=== PATIENT | female | born 1960 | race Caucasian/White ===

== ENCOUNTER 2017-05-17 07:06 | Emergency (ER) | payer OTHER ==
[2017-05-17 07:12] VITALS: RESP 18; TEMP 98.4
[2017-05-17] MEDS ORDERED: NS 1,000 ML IV ONE (07:26)
--- NOTE | 2017-05-17 07:28 | EDPHY ---
H & P Stated Complaint: LLQ pain x 5 days; hx diverticulitis;also states urine is dark Time Seen by Provider: 05/17/17 07:16 HPI/ROS: CHIEF COMPLAINT: Left lower quadrant pain HISTORY OF PRESENT ILLNESS: Patient is a 56-year-old female with history of appendectomy and recurrent diverticulitis. She began experiencing left lower quadrant pain on 4 days ago. She began taking left over Flagyl. Her symptoms have not improved. She has not had a fever. No vomiting. No diarrhea. She has had dark colored urine. No flank pain. She works for urologist. REVIEW OF SYSTEMS: Constitutional: denies: chills, fever, recent illness, recent injury EENTM: denies: blurred vision, double vision, nose congestion Respiratory: denies: cough, shortness of breath Cardiac: denies: chest pain, irregular heart rate, lightheadedness, palpitations Gastrointestinal/Abdominal: See HPI Genitourinary: denies: dysuria, frequency, hematuria, pain Musculoskeletal: denies: joint pain, muscle pain Skin: denies: lesions, rash, jaundice, bruising Neurological: denies: headache, numbness, paresthesia, tingling, dizziness, weakness Hematologic/Lymphatic: denies: blood clots, easy bleeding, easy bruising Immunologic/allergic: denies: HIV/AIDS, transplant EXAM: GENERAL: Well-appearing, well-nourished and in no acute distress. HEAD: Atraumatic, normocephalic. EYES: Pupils equal round and reactive to light, extraocular movements intact, sclera anicteric, conjunctiva are normal. ENT: TMs normal, nares patent, oropharynx clear without exudates. Moist mucous membranes. NECK: Normal range of motion, supple without lymphadenopathy or JVD. LUNGS: Breath sounds clear to auscultation bilaterally and equal. No wheezes rales or rhonchi. HEART: Regular rate and rhythm without murmurs, rubs or gallops. ABDOMEN: Left lower quadrant tenderness, no guarding or rebound, no masses BACK: No CVA tenderness, no spinal tenderness, step-offs or deformities EXTREMITIES: Normal range of motion, no pitting or edema. No clubbing or cyanosis. NEUROLOGICAL: Cranial nerves II through XII grossly intact. Normal speech, normal gait. 5/5 strength, normal movement in all extremities, normal sensation PSYCH: Normal mood, normal affect. SKIN: Warm, dry, normal turgor, no visible rashes or lesions. Source: Patient Exam Limitations: No limitations - Personal History Current Tetanus Diphtheria and Acellular Pertussis (TDAP): Yes - Medical/Surgical History Hx Asthma: No Hx Chronic Respiratory Disease: No Hx Diabetes: No Hx Cardiac Disease: No Hx Renal Disease: No Hx Cirrhosis: No Hx Alcoholism: No Hx HIV/AIDS: No Hx Splenectomy or Spleen Trauma: No Other PMH: diverticulitis. glaucoma. thyroid. Appendectomy - Family History Significant Family History: No pertinent family hx - Social History Smoking Status: Never smoked Alcohol Use: Sober Drug Use: None Constitutional: Initial Vital Signs Temperature (C) 36.9 C 05/17/17 07:08 Heart Rate 82 05/17/17 07:08 Respiratory Rate 18 05/17/17 07:08 Blood Pressure 150/83 H 05/17/17 07:08 O2 Sat (%) 97 05/17/17 07:08 O2 Delivery Mode Room Air Allergies/Adverse Reactions: codeine Allergy (Mild, Verified 05/17/17 07:08) Other-Enter Comments Home Medications: Medication Instructions Recorded Atorvastatin Calcium [Lipitor 20 20 mg PO DAILY 05/21/16 mg (*)] Hydrochlorothiazide [HCTZ (*)] 25 mg PO DAILY 05/21/16 Levothyroxine [Synthroid 75 mcg 75 mcg PO DAILY06 05/21/16 (*)] Losartan Potassium [Cozaar 50 mg 50 mg PO DAILY 05/21/16 (*)] Omeprazole 20 mg PO BID 05/21/16 Ciprofloxacin [Cipro] 500 mg PO BID #14 tab 05/17/17 metroNIDAZOLE [Flagyl] 500 mg PO BID #20 tab 05/17/17 Medical Decision Making - Diagnostics Imaging Results: Imaging Impressions Abdomen CT 05/17/17 07:26 Impression: Diverticulitis of sigmoid colon. I telephoned results to Dr. Taj Wynn at 0854 hours. ED Course/Re-evaluation: 9:00 a.m. we discussed the CT results. The patient is well appearing. We discussed disposition and she would prefer to stay at home. We did discuss indications for returning to the emergency department. I will add ciprofloxacin to her Flagyl that she has been taking. She declines pain medication prescription and states that she will continue taking cannabis jellies. She will follow up with her surgeon Dr. Langley in the next few days. Differential Diagnosis: Partial list of the Differential diagnosis considered include but were not limited to; diverticulitis, kidney stone, urinary tract infection and although unlikely based on the history and physical exam, I also considered ovarian cyst , obstruction, volvulus. I discussed these differential diagnoses and the plan with the patient as well as the usual and expected course. The patient understands that the diagnosis is provisional and that in medicine we are not always correct and that further workup is often warranted. Usual and customary warnings were given. All of the patient's questions were answered. The patient was instructed to return to the emergency department should the symptoms at all worsen or return, otherwise to followup with the physician as we discussed. - Data Points Laboratory Results: Laboratory Results 05/17/17 07:28 05/17/17 07:28 05/17/17 05/17/17 05/17/17 08:50 07:28 07:28 WBC RBC Hgb Hct MCV MCH MCHC RDW Plt Count MPV Neut % (Auto) Lymph % (Auto) Starke % (Auto) Eos % (Auto) Baso % (Auto) Nucleat RBC Rel Count Absolute Neuts (auto) Absolute Lymphs (auto) Absolute Monos (auto) Absolute Eos (auto) Absolute Basos (auto) Absolute Nucleated RBC Immature Gran % Immature Gran # Sodium 141 mEq/L mEq/L (134-144) Potassium 3.5 mEq/L mEq/L (3.5-5.2) Chloride 105 mEq/L mEq/L (97-110) Carbon Dioxide 19 mEq/l L mEq/l (22-31) Anion Gap 17 mEq/L H mEq/L (8-16) BUN 14 mg/dL mg/dL (7-23) Creatinine 0.7 mg/dL mg/dL (0.6-1.0) Estimated GFR > 60 Glucose 126 mg/dL H mg/dL (70-100) Calcium 9.6 mg/dL mg/dL (8.5-10.4) Total Bilirubin 1.1 mg/dL mg/dL (0.1-1.4) Conjugated Bilirubin 0.4 mg/dL mg/dL (0.0-0.5) Unconjugated Bilirubin 0.7 mg/dL mg/dL (0.0-1.1) AST 37 IU/L IU/L (14-46) ALT 78 IU/L H IU/L (9-52) Alkaline Phosphatase 137 IU/L H IU/L (38-126) Total Protein 6.9 g/dL g/dL (6.3-8.2) Albumin 3.9 g/dL g/dL (3.5-5.0) Lipase 183 IU/L IU/L (23-300) Beta HCG, Qual NEGATIVE Urine Color YELLOW Urine Appearance CLEAR Urine pH 7.0 (5.0-7.5) Ur Specific [place] 1.017 (1.002-1.030) Urine Protein NEGATIVE (NEGATIVE) Urine Ketones NEGATIVE (NEGATIVE) Urine Blood NEGATIVE (NEGATIVE) Urine Nitrate NEGATIVE (NEGATIVE) Urine Bilirubin NEGATIVE (NEGATIVE) Urine Urobilinogen NEGATIVE EU EU (0.2-1.0) Ur Leukocyte Esterase TRACE H (NEGATIVE) Urine RBC 1-3 /hpf /hpf (0-3) Urine WBC 0-1 /hpf /hpf (0-3) Ur Epithelial Cells TRACE /lpf /lpf (NONE-1+) Urine Mucus TRACE /lpf /lpf (NONE-1+) Urine Glucose NEGATIVE (NEGATIVE) 05/17/17 07:28 WBC 11.26 10^3/uL H 10^3/uL (3.80-9.50) RBC 3.39 10^6/uL L 10^6/uL (4.18-5.33) Hgb 11.6 g/dL L g/dL (12.6-16.3) Hct 33.7 % L % (38.0-47.0) MCV 99.4 fL fL (81.5-99.8) MCH 34.2 pg H pg (27.9-34.1) MCHC 34.4 g/dL g/dL (32.4-36.7) RDW 13.2 % % (11.5-15.2) Plt Count 264 10^3/uL 10^3/uL (150-400) MPV 10.4 fL fL (8.7-11.7) Neut % (Auto) 80.0 % H % (39.3-74.2) Lymph % (Auto) 11.1 % L % (15.0-45.0) Starke % (Auto) 6.6 % % (4.5-13.0) Eos % (Auto) 1.2 % % (0.6-7.6) Baso % (Auto) 0.6 % % (0.3-1.7) Nucleat RBC Rel Count 0.0 % % (0.0-0.2) Absolute Neuts (auto) 9.00 10^3/uL H 10^3/uL (1.70-6.50) Absolute Lymphs (auto) 1.25 10^3/uL 10^3/uL (1.00-3.00) Absolute Monos (auto) 0.74 10^3/uL 10^3/uL (0.30-0.80) Absolute Eos (auto) 0.14 10^3/uL 10^3/uL (0.03-0.40) Absolute Basos (auto) 0.07 10^3/uL 10^3/uL (0.02-0.10) Absolute Nucleated RBC 0.00 10^3/uL 10^3/uL (0-0.01) Immature Gran % 0.5 % % (0.0-1.1) Immature Gran # 0.06 10^3/uL 10^3/uL (0.00-0.10) Sodium Potassium Chloride Carbon Dioxide Anion Gap BUN Creatinine Estimated GFR Glucose Calcium Total Bilirubin Conjugated Bilirubin Unconjugated Bilirubin AST ALT Alkaline Phosphatase Total Protein Albumin Lipase Beta HCG, Qual Urine Color Urine Appearance Urine pH Ur Specific [place] Urine Protein Urine Ketones Urine Blood Urine Nitrate Urine Bilirubin Urine Urobilinogen Ur Leukocyte Esterase Urine RBC Urine WBC Ur Epithelial Cells Urine Mucus Urine Glucose Medications Given: Discontinued Medications Ciprofloxacin (Cipro) 500 mg PO EDNOW ONE PRN Reason: Protocol Stop: 05/17/17 09:01 Last Admin: 05/17/17 09:06 Dose: 500 mg Sodium Chloride (Ns) 1,000 mls @ 0 mls/hr IV EDNOW ONE; Wide Open PRN Reason: Protocol Stop: 05/17/17 07:27 Last Admin: 05/17/17 07:30 Dose: 1,000 mls Metronidazole (Flagyl) 500 mg PO EDNOW ONE PRN Reason: Protocol Stop: 05/17/17 09:01 Last Admin: 05/17/17 09:07 Dose: Not Given Departure - Departure Disposition: Home, Routine, Self-Care Clinical Impression: Diverticulitis Condition: Fair Instructions: Diverticulitis (ED) Referrals: Coleen Goldman PA [Primary Care Provider] - As per Instructions Brice Langley MD [Medical Doctor] - As per Instructions Prescriptions: Ciprofloxacin [Cipro] 500 mg PO BID #14 tab metroNIDAZOLE [Flagyl] 500 mg PO BID #20 tab
[2017-05-17 07:34] LABS: % IMMATURE GRANULYOCYTES 0.5 % (0.0-1.1); ABSOLUTE IMMATURE GRANULOCYTES 0.06 10^3/uL (0.00-0.10); ADD DIFF? NO; ADD MORPH? NO; ADD SCAN? NO; ATYPICAL LYMPHOCYTE FLAG 0 (0-99); FRAGMENT RBC FLAG 0 (0-99); HEMATOCRIT 33.7 % (38.0-47.0); HEMOGLOBIN 11.6 g/dL (12.6-16.3); LEFT SHIFT FLG 0 (0-99); LIPEMIA HEMOLYSIS FLAG 90 (0-99); MEAN CELL HEMOGLOBIN 34.2 pg (27.9-34.1); MEAN CELL HEMOGLOBIN CONCENTR. 34.4 g/dL (32.4-36.7); MEAN CELL VOLUME 99.4 fL (81.5-99.8); MEAN PLATELET VOLUME 10.4 fL (8.7-11.7); PLATELET CLUMPS FLAG 20 (0-99); PLATELET COUNT 264 10^3/uL (150-400); RED BLOOD CELL COUNT 3.39 10^6/uL (4.18-5.33); RED CELL DISTRIBUTION WIDTH 13.2 % (11.5-15.2)
[2017-05-17 07:51] LABS: ALANINE AMINOTRANSFERASE 78 IU/L (9-52); ALBUMIN 3.9 g/dL (3.5-5.0); ALKALINE PHOSPHATASE 137 IU/L (38-126); ANION GAP 17 mEq/L (8-16); ASPARTATE AMINOTRANSFERASE 37 IU/L (14-46); BILIRUBIN,TOTAL 1.1 mg/dL (0.1-1.4); BILIRUBIN-CONJUGATED 0.4 mg/dL (0.0-0.5); BILIRUBIN-UNCONJUGATED 0.7 mg/dL (0.0-1.1); CALCIUM 9.6 mg/dL (8.5-10.4); CARBON DIOXIDE 19 mEq/l (22-31); CHLORIDE 105 mEq/L (97-110); CREATININE 0.7 mg/dL (0.6-1.0); GLOMERULAR FILTRATION RATE > 60; GLUCOSE 126 mg/dL (70-100); POTASSIUM 3.5 mEq/L (3.5-5.2); SODIUM 141 mEq/L (134-144); TOTAL PROTEIN 6.9 g/dL (6.3-8.2)
[2017-05-17] MEDS ORDERED: IOPAMIDOL (ISOVUE-300) 100 ML BTL ONE (08:16)
[2017-05-17 08:51] VITALS: BP 141/89; PULSE 74; O2SAT 96
[2017-05-17 08:57] LABS: COLOR YELLOW; LEUKOCYTE ESTERASE,URINE TRACE (NEGATIVE); NITRITE,URINE NEGATIVE (NEGATIVE)
[2017-05-17 09:00] LABS: MUCUS TRACE /lpf (NONE-1+); WBC,URINE 0-1 /hpf (0-3)
[2017-05-17] MEDS ORDERED: metroNIDAZOLE 500 MG TAB PO ONE (09:00)
[2017-05-17] MEDS ORDERED: CIPROFLOXACIN 500 MG TAB PO ONE (09:00)
== END 2017-05-17 09:20 | disposition home or self-care (01) ==
DX: K57.32 Diverticulitis of large intestine without perforation or abscess without bleeding (principal); E86.9 Volume depletion, unspecified; Z90.49 Acquired absence of other specified parts of digestive tract
CPT/HCPCS: Q9967

== ENCOUNTER 2017-07-16 07:29 | Inpatient (IN) | payer OTHER ==
[2017-07-16] MEDS ORDERED: DEXAMETHASONE 4 MG/ML VIAL IVP ONE (07:48)
[2017-07-16] MEDS ORDERED: LR 1,000 ML IV SCH (07:48)
[2017-07-16] MEDS ORDERED: cefOXitin SODIUM 2 GM in STERILE WATER INJ 21 ML IV ONE (07:48)
[2017-07-16] MEDS ORDERED: LR 1,000 ML IV ONE (08:16)
[2017-07-16] MEDS ORDERED: LIDOCAINE 1% 2 ML INJ ID PRN (08:16)
[2017-07-16] MEDS ORDERED: LIDOCAINE 1% 2 ML INJ ONE (08:20)
[2017-07-16] MEDS ORDERED: MIDAZOLAM 2 MG/2 ML VIAL IVP ONE (09:27)
--- NOTE | 2017-07-16 09:27 | PDANEPAE ---
ANE History of Present Illness diverticulitis here for colon resection ANE Past Medical History - Cardiovascular History Hx Hypertension: Yes Hx Arrhythmias: No Hx Chest Pain: No Hx Coronary Artery / Peripheral Vascular Disease: No Hx CHF / Valvular Disease: No Hx Palpitations: No - Pulmonary History Hx COPD: No Hx Asthma/Reactive Airway Disease: No Hx Recent Upper Respiratory Infection: No Hx Oxygen in Use at Home: No Hx Sleep Apnea: No Sleep Apnea Screening Result - Last Documented: Negative - Neurologic History Hx Cerebrovascular Accident: No Hx Seizures: No Hx Dementia: No - Endocrine History Hx Diabetes: No Endocrine History Comment: HYPOTHYROID - Renal History Hx Renal Disorders: No - Liver History Hx Hepatic Disorders: No - Neurological & Psychiatric Hx Hx Neurological and Psychiatric Disorders: No - Cancer History Hx Cancer: No - Congenital Disorder History Hx Congenital Disorders: No - GI History Hx Gastrointestinal Disorders: Yes Gastrointestinal History Comment: GERD. GI BLEED DIVERTICULOSIS AND DIVERTICULITIS. LIQUID STOOLS. FATTY LIVER - Other Health History Other Health History: IRON DEFICIENCY ANEMIA BLOOD TRANSFUSION 2015 - Chronic Pain History Chronic Pain: Yes (LT LOWER QUADRANT) - Surgical History Prior Surgeries: PEGGY GLAUCOMA. EGD/COLONOSCOPY 05/22. BREAST BX X4. APPENDECTOMY 2001. RT THUMB REMVL CA DEPOSITS. CHIN RECONSTRUCTION POST DOG BITE ANE Review of Systems Review of Systems: - Exercise capacity METS (RN): 4 METS ANE Patient History - Allergies Allergies/Adverse Reactions: codeine Allergy (Mild, Verified 05/17/17 07:08) Other-Enter Comments - Home Medications Home Medications: Atorvastatin Calcium [Lipitor 20 mg (*)] 20 mg PO DAILY 05/21/16 [Last Taken ] Hydrochlorothiazide [HCTZ (*)] 25 mg PO DAILY 05/21/16 [Last Taken 05/20/16] Levothyroxine [Synthroid 75 mcg (*)] 75 mcg PO DAILY06 05/21/16 [Last Taken ] Losartan Potassium [Cozaar 50 mg (*)] 50 mg PO DAILY 05/21/16 [Last Taken ] Omeprazole 20 mg PO DAILY 05/21/16 [Last Taken 05/20/16] Ascorbic Acid [Vitamin C 500 mg (*)] 1,000 mg PO DAILY 06/30/17 [Last Taken Unknown] Calcium Carb W/Vit D [Calcium Carb W/Vit D 500/200 (*)] 1,200 mg PO DAILY [Last Taken Unknown] Capsaicin [Capsicum Hot Patch] 1 each TP DAILY PRN 06/30/17 [Last Taken Unknown] Cyanocobalamin [Vitamin B12 (*)] 2,500 mcg PO DAILY 06/30/17 [Last Taken Unknown ] Ferrous Sulfate [Ferrous Sulf 325 MG (*)] 325 mg PO DAILY 06/30/17 [Last Taken Unknown] Folic Acid [Folic Acid 1 MG (*)] 800 mcg PO DAILY 06/30/17 [Last Taken Unknown] Herbals/Supplements -Info Only 1 ea PO DAILY 06/30/17 [Last Taken Unknown] Multivitamins [Multivitamin (*)] 1 tab PO DAILY 06/30/17 [Last Taken Unknown] - NPO status NPO Status: no food or drink >8 hours NPO Since - Liquids (Date): 07/15/17 NPO Since - Liquids (Time): 19:30 NPO Since - Solids (Date): 07/14/17 NPO Since - Solids (Time): 19:00 - Anes Hx Anes Hx: no prior problems - Smoking Hx Smoking Status: Never smoked - Alcohol Use Alcohol Use: Occasionally - Family Anes Hx Family Anes Hx: none ANE Labs/Vital Signs - Vital Signs Blood Pressure: 150/94 Heart Rate: 76 Respiratory Rate: 16 O2 Sat (%): 94 Height: 156.21 cm Weight: 67.585 kg ANE Physical Exam - Airway Neck exam: FROM Mallampati Score: Class 2 Mouth exam: normal dental/mouth exam - Pulmonary Pulmonary: no respiratory distress, clear to auscultation - Cardiovascular Cardiovascular: regular rate and rhythym, no murmur, rub, or gallop - ASA Status ASA Status: II ANE Anesthesia Plan Anesthesia Plan: general endotracheal anesthesia
--- NOTE | 2017-07-16 09:28 | PDHPUP ---
History & Physical Update H&P update statement: This history and physical update is based on an assessment of the patient which was completed after admission or registration (within 24 hours), but prior to the surgery/procedure. H&P update: H&P reviewed & patient examined, no change in patient's condition since H&P completed
[2017-07-16] MEDS ORDERED: fentaNYL 100 MCG/2 ML INJ ONE ×3 (09:35→13:52)
[2017-07-16] MEDS ORDERED: PROPOFOL 200 MG/20 ML VIAL ONE (09:35)
[2017-07-16] MEDS ORDERED: POLYMYXIN B SULFATE 500,000 UNIT/10 ML SYR IRR ONE (09:38)
[2017-07-16] MEDS ORDERED: BUPIVACAINE 0.5% 30 ML SDV ONE ×2 (09:38→12:24)
[2017-07-16] MEDS ORDERED: BACITRACIN 50,000 UNITS/10 ML SYR IRR ONE (09:39)
[2017-07-16] MEDS ORDERED: LIDOCAINE 2% 5 ML SDV ONE (09:41)
[2017-07-16] MEDS ORDERED: ROCURONIUM 50 MG/5 ML VIAL ONE (09:41)
[2017-07-16] MEDS ORDERED: DEXAMETHASONE 4 MG/ML VIAL ONE (09:41)
[2017-07-16] MEDS ORDERED: CAPSAICIN TP PRN (10:14)
[2017-07-16] MEDS ORDERED: SUGAMMADEX SODIUM 200 MG/2 ML VIAL IVP ONE (10:26)
[2017-07-16] MEDS ORDERED: ONDANSETRON 4 MG/2 ML VIAL ONE (10:26)
[2017-07-16] MEDS ORDERED: ONDANSETRON 4 MG/2 ML VIAL IVP PRN (11:34)
[2017-07-16] MEDS ORDERED: PROMETHAZINE HCL 25 MG/ML INJ IVP PRN ×2 (11:34→13:20)
[2017-07-16] MEDS ORDERED: NALOXONE HCL 0.4 MG/ML INJ IVP PRN (11:34)
[2017-07-16] MEDS ORDERED: HYDROmorphONE/DILAUDID 1 MG/ML INJ IVP PRN ×2 (11:34→13:20)
[2017-07-16] MEDS ORDERED: HYDROCODONE/APAP 5/325 TAB PO PRN (11:34)
[2017-07-16] MEDS ORDERED: fentaNYL 100 MCG/2 ML INJ IVP PRN (11:34)
[2017-07-16] MEDS ORDERED: OXYCODONE/APAP 5/325 TAB PO PRN (11:34)
[2017-07-16] MEDS ORDERED: D5W LR 1,000 ML IV SCH (13:30)
--- NOTE | 2017-07-16 13:30 | POSTOPPROG ---
Post Op Note Date of Operation: 07/16/17 Surgeon: Tremaien Mendosa (, FACS) Geology Professor: Felicity Castaneda RN-FA Anesthesia: GET(General Endotracheal) Pre-op Diagnosis: diverticulitis, chronic Post-op Diagnosis: same Procedure: lap sigmoid colectomy Findings: chronic inflammation mid sigmoid colon Inf/Abcess present in the surg proc area at time of surgery?: No EBL: 100-500 (400) Drains: [place] Specimen(s): sigmoid colon
--- NOTE | 2017-07-16 14:32 | POSTANESTH ---
Post Anesthetic Evaluation Cardiovascular Status: Normal, Stable, Similar to Pre-Op Cond Respiratory Status: Normal, Stable, Similar to Pre-op Cond. Level of Consciousness/Mental Status: Can Participate in Eval, Alert and Oriented Pain Control: Adequate, Prn Tx Ordered Nausea/Vomiting Control: Adequate, Prn Tx Ordered Complications Possibly Related to Anesthesia: None Noted
--- NOTE | 2017-07-16 14:56 | GOP ---
[f rep st] OPERATIVE REPORT DATE OF OPERATION: SURGEON: Tremaine Mendosa MD, FACS [employer] HELPER: VIANCA Noriega ANESTHESIA: General endotracheal. ANESTHESIOLOGIST: Bryant Ye MD. PREOPERATIVE DIAGNOSIS: Chronic sigmoid diverticulitis. POSTOPERATIVE DIAGNOSIS: Chronic sigmoid diverticulitis. PROCEDURE PERFORMED: Laparoscopic sigmoid colectomy. FINDINGS: Chronic inflammatory changes of the sigmoid colon with adhesions to the pelvic sidewall involving the left fallopian tube and ovary. No evidence of active infection, perforation, or abscess formation. ESTIMATED BLOOD LOSS: 400 cc. DESCRIPTION OF PROCEDURE: After informed consent was obtained, the patient was brought to the operating room and placed under general anesthesia. She was carefully positioned in lithotomy. Park catheter was placed. The abdomen and perineum were prepped and draped in the usual fashion. Before proceeding, a time-out identification of the patient was performed. Marcaine 0.25% was used to infiltrate all incision sites. A longitudinal incision was made through the base of the umbilicus and carried through skin and subcutaneous tissues. Ventral traction was applied to the abdominal wall with a penetrating towel clamp, and a Veress needle delivered into the peritoneal cavity. Position was confirmed by saline infusion. A pneumoperitoneum was established with CO2 gas to a pressure of 15 mmHg. The Veress needle was withdrawn and replaced with a 12 mm bladeless trocar. A 30- degree 10 mm scope was introduced, and the peritoneal cavity was visualized. Additional 5 mm ports were placed in the suprapubic and right lower quadrant positions under direct visualization. Atraumatic forceps were introduced, and the sigmoid colon was inspected. It was noted to be tethered at the pelvic sidewall secondary to adhesions, otherwise was thickened and chronically inflamed for a distance of approximately 12-15 cm. Proximal and distal colon appeared unremarkable. It appeared to be a favorable location for primary resection and colocolostomy. The adhesions between the sigmoid colon and the pelvic sidewall were taken down using the Harmonic Scalpel for hemostasis. This allowed visualization of the left tube and ovary, which appeared unremarkable. As the colon was rotated medially, the peritoneum was incised cephalad along the paracolic gutter, mobilizing the distal descending colon and sigmoid colon. The distal sigmoid colon appeared unremarkable where it joined the rectum. The mesentery of the inflamed segment was incised and dissected with the Harmonic Scalpel for hemostasis. Slow steady oozing of blood at this point was readily controlled using no electrocautery. After the mesentery had been cleared proximally and distally, rather than dividing the bowel internally with staplers, it was elected to proceed with the access incision. A 7-8 cm left lower quadrant access incision was then made transversely after infiltrating the abdominal wall with 0.25% Marcaine. Full-thickness entry into the peritoneal cavity was followed by deployment of the Anderson wound protector (medium). The sigmoid colon was delivered into the operative field, and the proximal and distal portions of bowel were inspected. Brittani atraumatic bowel clamps were applied proximally and distally, and the bowel was divided and removed from the field. The inflamed segment was inspected and did not show any evidence of tumor formation. The proximal and distal portions of the bowel had good blood supply. A 2-layered hand-sewn anastomosis was then performed as follows. The posterior outer row of the anastomosis was performed with interrupted 3-0 Vicryl suture. The inner posterior row of the anastomosis was performed with interrupted 3-0 Vicryl suture. This was continued anteriorly in a mucosal inverting fashion. A Cheatle split was performed on the distal bowel to accommodate size discrepancy. After the final inner-outer row was performed, an anterior-outer row was performed with interrupted 3-0 Vicryl sutures in a Lembert fashion. Upon completion, the anastomosis appeared intact, without undue tension. This portion of the bowel was returned to the abdominal cavity. Gloves and instruments were changed. The Anderson wound protector was removed. The peritoneum was closed with continuous running 2-0 Vicryl suture. The anterior fascia and remainder of the wound were irrigated, and the fascia then closed with #1 PDS suture. Subcutaneous tissues were infiltrated with 0.25% Marcaine. Skin was closed with warner over a drain. Pneumoperitoneum was reestablished, and operative field appeared hemostatic. The pneumoperitoneum was then evacuated. The umbilical fascial defect was repaired with 0 Vicryl suture. Subcutaneous tissues were closed with 3-0 and 4-0 Monocryl suture in a subcuticular fashion. Topical Dermabond was applied, followed by sterile dressings. Patient was returned extubated to the recovery room in satisfactory condition. Needle, sponge, and instrument counts were correct. COMPLICATIONS: None. /[id number]/MODL MTDD
[2017-07-16 16:38] LABS: PLATELET COUNT 189 10^3/uL (150-400)
[2017-07-16] MEDS: ONDANSETRON 4 MG/2 ML VIAL IVP PRN (16:39)
[2017-07-16] MEDS: cefOXitin SODIUM 1 GM in STERILE WATER INJ 10.5 ML IV SCH ×2 (16:41→22:38)
[2017-07-16 17:58] VITALS: RESP 16
[2017-07-16] MEDS: OXYCODONE/APAP 5/325 TAB PO PRN ×2 (18:15→22:42)
[2017-07-17] MEDS: cefOXitin SODIUM 1 GM in STERILE WATER INJ 10.5 ML IV SCH (05:20)
[2017-07-17] MEDS: LEVOTHYROXINE 75 MCG TAB PO SCH (05:20)
[2017-07-17] MEDS: ENOXAPARIN 40 MG/0.4 ML SYR SC SCH (08:33)
[2017-07-17] MEDS: ATORVASTATIN CALCIUM 20 MG TAB PO SCH (08:34)
[2017-07-17] MEDS: OXYCODONE/APAP 5/325 TAB PO PRN ×3 (08:34→20:42)
[2017-07-17] MEDS: HYDROCHLOROTHIAZIDE 25 MG TAB PO SCH (08:35)
[2017-07-17] MEDS: PANTOPRAZOLE SODIUM 40 MG TAB PO SCH (08:35)
[2017-07-17] MEDS: LOSARTAN POTASSIUM 50 MG TAB PO SCH (08:36)
--- NOTE | 2017-07-17 09:36 | SOAPPROG ---
SOAP Progress Note Assessment/Plan: Assessment: Plan: Subjective: awake/alert, reports good pain control no flatus Objective: Vital Signs Temp Pulse Resp BP Pulse Ox 36.9 C 62 16 120/76 97 07/17/17 08:00 07/17/17 08:00 07/17/17 08:00 07/17/17 08:36 07/17/17 08:00 Laboratory Results 07/16/17 16:32 07/16/17 16:32 07/16/17 07/17/17 07/18/17 05:59 05:59 05:59 Intake Total 3415 Output Total 1575 300 Balance 1840 -300 - Pending Discharge Pending Discharge Within 24 Hours: No Pending Discharge Within 48 Hours: No Physical Exam - Physical Exam General Appearance: no apparent distress Respiratory: lungs clear Cardiac/Chest: regular rate, rhythm Abdomen: normal bowel sounds, soft, other (incision o.k./minimal drain output) Neuro/Psych: normal mood/affect, oriented x 3 ICD10 Worksheet Patient Problems: Problems Problem Status Onset GI bleed Acute
--- NOTE | 2017-07-17 11:39 | ASMTCMCOM ---
CM Note CM Note Notes: Pt admitted for scheduled lap sigmoid colectomy for diverticulitis. Hx includes an appendectomy, colon polyps, ectopic . Pt lives w/ her , independently. No PT/OT orders. Anticipate pt will likely d/c home independent w/ family support when medically stable. CM will cont to follow for any potential needs. Current Discharge Plan: Home independent w/ family support Date Signed: 07/17/2017 11:39 AM Electronically Signed By:Nanci Manzanares RN
[2017-07-18] MEDS: LEVOTHYROXINE 75 MCG TAB PO SCH (05:34)
[2017-07-18] MEDS ORDERED: traMADol 50 MG TAB PO PRN (09:02)
[2017-07-18] MEDS ORDERED: diphenhydrAMINE 25 MG CAP PO PRN (09:03)
[2017-07-18] MEDS: ENOXAPARIN 40 MG/0.4 ML SYR SC SCH (09:16)
[2017-07-18] MEDS ORDERED: ZOLPIDEM TARTRATE 5 MG TAB PO PRN (09:22)
[2017-07-18] MEDS: LOSARTAN POTASSIUM 50 MG TAB PO SCH (09:22)
[2017-07-18] MEDS: HYDROCHLOROTHIAZIDE 25 MG TAB PO SCH (09:22)
[2017-07-18] MEDS: PANTOPRAZOLE SODIUM 40 MG TAB PO SCH (09:23)
[2017-07-18] MEDS: ATORVASTATIN CALCIUM 20 MG TAB PO SCH (09:23)
--- NOTE | 2017-07-18 09:27 | SOAPPROG ---
SOAP Progress Note Assessment/Plan: Assessment:resolving ileus after sigmoid resection facial/neck rash-likely topical rxn oral thrush Plan: po Diflucan/prn Benedryl continue full liquids anticipate discharge tomorrow. Earnest Mendosa MD, FACS 07/18/17 09:24 Subjective: c/o rash face and neck/passing flatus-no BM Objective: Vital Signs Temp Pulse Resp BP Pulse Ox 36.8 C 68 16 169/89 H 94 07/18/17 08:00 07/18/17 08:00 07/18/17 08:00 07/18/17 09:22 07/18/17 08:00 Laboratory Results 07/16/17 16:32 07/16/17 16:32 07/17/17 07/18/17 07/19/17 05:59 05:59 05:59 Intake Total 3415 250 Output Total 1575 2300 600 Balance 1840 -6463 -600 - Pending Discharge Pending Discharge Within 24 Hours: Yes Pending Discharge Date: 07/19/17 Pending Discharge Time: 11:00 Physical Exam - Physical Exam General Appearance: no apparent distress EENT: other (toungue coated) Respiratory: lungs clear Cardiac/Chest: regular rate, rhythm Abdomen: normal bowel sounds, soft, other (incisions o.k./hailey removed) Skin: rash (right malar and posterior cervical) ICD10 Worksheet Patient Problems: Problems Problem Status Onset GI bleed Acute
[2017-07-18] MEDS: ONDANSETRON 4 MG/2 ML VIAL IVP PRN (10:53)
[2017-07-18] MEDS: FLUCONAZOLE 100 MG TAB PO SCH (10:54)
[2017-07-19] MEDS: LEVOTHYROXINE 75 MCG TAB PO SCH (06:25)
[2017-07-19 08:43] VITALS: BP 154/83; PULSE 73; TEMP 97.9; O2SAT 95
--- NOTE | 2017-07-19 08:43 | PDDCSUM ---
Discharge Summary Discharge Summary: #[id number] BRETT Mendosa MD, FACS
--- NOTE | 2017-07-19 09:27 | GDS ---
[f rep st] DISCHARGE SUMMARY DISCHARGE DIAGNOSES: 1. Diverticulitis. 2. Hypertension. 3. History of anemia. PROCEDURE PERFORMED: On 07/16/2017, laparoscopic sigmoid colectomy with primary colocolostomy. HOSPITAL COURSE: For details of admission history and physical, please see dictated summary. Briefl y, the patient is a 56-year-old female with chronic left lower quadrant pain and 15 years of intermit tent diverticulitis. She was last treated with antibiotics in May and elected to proceed with c olon resection because of persistent symptoms. Surgery was performed after mechanical and antibiotic bowel preparation, as well as with intravenous antibiotics administered preoperatively and postoperatively. She had an uneventful hospital course, began passing flatus within 24 hours of her surgery, was advanced in her diet, and was discharged mauar e on the morning of postoperative day 3, having had full return of bowel function and advanced to a l ow residue diet. She remained afebrile in the postoperative period and was restarted on her regular blood pressure medicines. At time of discharge, she was taking minimal tramadol for pain. She was s tarted on Diflucan because of clinical symptoms and signs of oral thrush from multiple courses of ant ibiotics in the prior year. DISCHARGE MEDICATIONS: Include omeprazole 20 mg 2 per day, losartan 50 mg per day, levothyroxine 75 mcg p.o. daily, hydrochlorothiazide 25 mg p.o. daily, atorvastatin 20 mg p.o. daily, folate acid 1 mg p.o. daily, tramadol 50 mg p.o. q.6 hours p.r.n. pain, and Ambien 2.5 to 5 mg p.o. q.h.s. p.r.n. ins omnia. CONDITION AT TIME OF DISCHARGE: Satisfactory. /[id number]/MODL
[2017-07-19] MEDS: FLUCONAZOLE 100 MG TAB PO SCH (09:44)
[2017-07-19] MEDS: ENOXAPARIN 40 MG/0.4 ML SYR SC SCH (09:44)
[2017-07-19] MEDS: PANTOPRAZOLE SODIUM 40 MG TAB PO SCH (09:44)
[2017-07-19] MEDS: ATORVASTATIN CALCIUM 20 MG TAB PO SCH (09:44)
[2017-07-19] MEDS: HYDROCHLOROTHIAZIDE 25 MG TAB PO SCH (09:44)
[2017-07-19] MEDS: LOSARTAN POTASSIUM 50 MG TAB PO SCH (09:44)
== END 2017-07-19 10:12 | disposition home or self-care (01) | DRG 392 ==
LOC: F3N 07:29 → F3E 15:19
PROVIDERS: ADMIT Surgery; ATTEND Surgery
PROC: 0DBN8ZZ Excision of Sigmoid Colon, Via Natural or Artificial Opening Endoscopic (ICD-10-PCS; principal; 2017-07-16 09:15)
DX: K57.92 Diverticulitis of intestine, part unspecified, without perforation or abscess without bleeding (principal); I10 Essential (primary) hypertension; D64.9 Anemia, unspecified; E03.9 Hypothyroidism, unspecified; Z86.010 Personal history of colon polyps; Z80.0 Family history of malignant neoplasm of digestive organs
CPT/HCPCS: J0694; J1100; J1650; J2250; J2405; J2704; J3010

== ENCOUNTER 2017-10-26 16:00 | Outpatient (CLI) | payer OTHER | END 2017-10-26 22:40 | disposition home or self-care (01) | LOC: FOBOP 16:00 | PROVIDERS: ATTEND Internal Medicine Hematology & Oncology | PROC: 30233N1 Transfusion of Nonautologous Red Blood Cells into Peripheral Vein, Percutaneous Approach (ICD-10-PCS; principal; 2017-10-26) | DX: D50.9 Iron deficiency anemia, unspecified (principal) | CPT/HCPCS: 36430; P9021 ==

== ENCOUNTER → 2017-11-11 | Outpatient (CLI) | payer OTHER | LOC: FIMAGING 08:07 | PROVIDERS: ATTEND Physician Assistant | DX: Z12.31 Encounter for screening mammogram for malignant neoplasm of breast (principal) ==